=== PATIENT | female | born 2000 | race Two or more races ===

== ENCOUNTER → 2020-01-25 | Outpatient (CLI) | payer OTHER | END | disposition home or self-care (01) | LOC: PRENATAL 09:45 | PROVIDERS: ATTEND Obstetrics & Gynecology Maternal & Fetal Medicine | DX: O26.843 Uterine size-date discrepancy, third trimester (principal); O36.5931 Maternal care for other known or suspected poor fetal growth, third trimester, fetus 1; O36.8131 Decreased fetal movements, third trimester, fetus 1; Z36.89 Encounter for other specified antenatal screening; Z3A.36 36 weeks gestation of pregnancy ==

== ENCOUNTER 2020-02-15 11:20 | Inpatient (IN) | payer OTHER ==
[~2020-02-15] VITALS: Ht 167.6 cm; Wt 65.8 kg
[2020-02-26] MEDS ORDERED: PRENATAL TABLE1 EAC1 PO (07:50)
[2020-02-26] MEDS ORDERED: NASAL MIST126 ML (07:51)
[2020-02-26] MEDS ORDERED: FOLIC ACID PO (07:51)
[2020-02-26] MEDS ORDERED: FOLIC ACID0.8 M1 PO (10:54)
== END 2020-02-28 13:54 | disposition home or self-care (01) | DRG 807 ==
LOC: OB/GYN 02-18 14:00 → LDR 02-26 06:18 → OB/GYN 02-26 06:18 → LDR 02-26 23:34 → OB/GYN 02-27 10:44
PROVIDERS: ADMIT Obstetrics & Gynecology; ATTEND Obstetrics & Gynecology
PROC: 10E0XZZ Delivery of Products of Conception, External Approach (ICD-10-PCS; principal; 2020-02-26)
PROC: 4A1HXFZ Monitoring of Products of Conception, Cardiac Rhythm, External Approach (ICD-10-PCS; 2020-02-26)
PROC: 3E033VJ Introduction of Other Hormone into Peripheral Vein, Percutaneous Approach (ICD-10-PCS; 2020-02-26)
PROC: 3E0P7VZ Introduction of Hormone into Female Reproductive, Via Natural or Artificial Opening (ICD-10-PCS; 2020-02-26)
DX: O80 Encounter for full-term uncomplicated delivery (principal); Z37.0 Single live birth; Z3A.40 40 weeks gestation of pregnancy; Z20.828 Contact with and (suspected) exposure to other viral communicable diseases

== ENCOUNTER 2023-04-14 15:30 | Outpatient (CLI) | payer OTHER ==
[~2023-04-14 15:30] MED LIST: FOLIC ACID PO; FOLIC ACID0.8 M1 PO; NASAL MIST126 ML; PRENATAL TABLE1 EAC1 PO
== END 2023-04-14 15:34 | disposition home or self-care (01) ==
LOC: PRENATAL 15:30
PROVIDERS: ATTEND Obstetrics & Gynecology Maternal & Fetal Medicine
DX: O26.849 Uterine size-date discrepancy, unspecified trimester (principal); O36.8199 Decreased fetal movements, unspecified trimester, other fetus; Z3A.34 34 weeks gestation of pregnancy

== ENCOUNTER 2023-05-13 09:45 | Inpatient (IN) | payer OTHER ==
[~2023-05-13] VITALS: Ht 165.1 cm; Wt 73.9 kg
[2023-05-20 21:08] LABS: HEMATOCRIT 34.8 % (36.0-45.00); HEMOGLOBIN 11.8 g/dL (12.0-15.00); MEAN CELL VOLUME 80.4 fL (80.00-100.00); MEAN CORPUSCULAR HEMOGLOBIN 27.3 pg (27.00-32.0); MEAN CORPUSCULAR HGB CONC 33.9 g/dl (32.0-36.0); PH,URINE 6.5 (5.0-8.0); PLATELET COUNT 219 K/uL (150-450); RED BLOOD COUNT 4.32 M/uL (4.00-6.00); RED CELL DISTRIBUTION WIDTH 14.9 % (11.5-14.5); URINE APPEARANCE Turbid; URINE BILIRRUBIN Negative (NEGATIVE); URINE BLOOD NHT; URINE COLOR Yellow; URINE GLUCOSE Negative (NEGATIVE); URINE LEUKOCYTE Large; URINE NITRATE Negative; URINE PROTEIN 30 (NEGATIVE)
[2023-05-20 21:11] LABS: URINE RBC 82.9 uL (0.0-20.8); URINE WBC 471.2 uL (0.0-23.2)
[2023-05-20 21:28] LABS: URINE EPITHELIAL CELLS > 201.7 uL (0.0-38.8)
[2023-05-20 21:29] LABS: URINE YEAST FEW /hpf
[2023-05-20 21:39] LABS: ALBUMIN 2.9 gm/dL (3.4-5.0); BILIRUBIN TOTAL 0.3 mg/dL (0.3-1.2); CREATININE SERUM 0.68 mg/dL (0.55-1.02); GFR 107.22; GLOBULINA 4.1 G/DL (2.4-3.5); POTASSIUM 3.71 mEq/L (3.5-5.1)
[2023-05-20 23:11] LABS: INR 0.98; PARTIAL THROMBOPLASTIN TIME 28.5 SECONDS (22.0-34.0); PROTHROMBIN TIME 10.3 SECONDS (9.0-11.5)
[2023-05-21 06:09] LABS: ABG PH 7.252 (7.35-7.45); ABG pCO2 56.7 mmHg (35-45)
[2023-05-21 06:10] LABS: ABG PO2 21.3 mmHg (80-100); BASE EXCESS -3.7 mmol/l; BICARBONATE 24.4 mmol/l (23-25); SaO2 25.7 %; Tco2 26.1 mmol/l; o2 21 %
[2023-05-21 07:22] LABS: HEMATOCRIT 32.7 % (36.0-45.00); HEMOGLOBIN 11.2 g/dL (12.0-15.00); MEAN CELL VOLUME 81.8 fL (80.00-100.00); MEAN CORPUSCULAR HGB CONC 34.2 g/dl (32.0-36.0); PLATELET COUNT 219 K/uL (150-450); RED CELL DISTRIBUTION WIDTH 14.7 % (11.5-14.5)
== END 2023-05-22 13:45 | disposition home or self-care (01) | DRG 807 ==
LOC: LDR 05-20 20:14 → OB/GYN 05-21 00:43
PROVIDERS: Obstetrics & Gynecology; ADMIT Obstetrics & Gynecology; ATTEND Obstetrics & Gynecology
PROC: 10E0XZZ Delivery of Products of Conception, External Approach (ICD-10-PCS; principal; 2023-05-20)
PROC: 4A1HXCZ Monitoring of Products of Conception, Cardiac Rate, External Approach (ICD-10-PCS; 2023-05-20)
DX: O99.824 Streptococcus B carrier state complicating childbirth (principal); Z37.0 Single live birth; Z3A.39 39 weeks gestation of pregnancy; Z20.822 Contact with and (suspected) exposure to COVID-19

== ENCOUNTER 2024-06-08 18:30 | Emergency (ER) | payer OTHER ==
[~2024-06-08] VITALS: Ht 165.1 cm; Wt 65.8 kg
[2024-06-08] MEDS ORDERED: ACETAMINOPHEN 500 MG GEL..CAP PO ONE ×2 (20:25→20:30)
[2024-06-08 21:06] LABS: HEMOGLOBIN 13.3 g/dL (12.0-15.00); MEAN CELL VOLUME 81.3 fL (80.00-100.00); MEAN CORPUSCULAR HGB CONC 33.2 g/dl (32.0-36.0); PLATELET COUNT 240 K/uL (150-450); RED BLOOD COUNT 4.92 M/uL (4.00-6.00); RED CELL DISTRIBUTION WIDTH 13.3 % (11.5-14.5)
[2024-06-08 21:09] LABS: URINE APPEARANCE Cloudy; URINE BILIRRUBIN Negative (NEGATIVE); URINE BLOOD Large; URINE COLOR Yellow; URINE GLUCOSE Negative (NEGATIVE); URINE KETONE Trace (NEGATIVE); URINE LEUKOCYTE Moderate; URINE NITRATE Negative; URINE UROBILINOGEN 0.2 E.U./dl
[2024-06-08 21:11] LABS: URINE BACTERIA 4966.7 uL (0.0-1933); URINE EPITHELIAL CELLS 24.3 uL (0.0-38.8); URINE WBC 2698.4 uL (0.0-23.2)
[2024-06-08 21:29] LABS: URINE CAST 0.44 uL (0.0-1.40); URINE PROTEIN 100 (NEGATIVE)
[2024-06-08 21:35] LABS: CALCIUM 9.4 mg/dL (8.5-10.1); GFR 67.55; POTASSIUM 3.78 mEq/L (3.5-5.1)
[2024-06-08] MEDS ORDERED: AMOX-CLAV 875-1 EACH PO (22:14)
[2024-06-08] MEDS ORDERED: PYRIDIUM100 M1 PO (22:14)
[2024-06-08] MEDS ORDERED: CEFTRIAXONE SODIUM 1,000 MG VIAL IM ONE (22:15)
[2024-06-08] MEDS ORDERED: CEFTRIAXONE SODIUM 1,000 MG VIAL ONE (22:24)
== END 2024-06-08 22:28 | disposition home or self-care (01) ==
LOC: ER 18:33
PROVIDERS: General Practice
DX: N39.0 Urinary tract infection, site not specified (principal); R30.0 Dysuria